=== PATIENT | female | born 1970 | race Caucasian/White ===

== ENCOUNTER → 2019-07-14 15:44 | Outpatient (CLI) | payer OTHER, SELFPAY ==
--- NOTE | 2019-07-14 14:00 | LES_PTH ---
PATIENT: CHANTELLE GARCIA LOC: [facility] U#:[id number] AGE/SX: 54/F ROOM: RE07/14/[address]: Dr. Jhony Agudelo MD : 1970 BED: DIS: SPEC #: [id number] RECD: 07/14/19 15:28 STATUS: JOSE DANNY #: [id number] TYLER: 07/14/19 14:[address]: Jhony Agudelo DEPT: SURGICAL PATHOLOGY RECD BY: Destin Novak ENTERED: 07/17/19 11:03 SP TYPE: Lesion OTHR DR: No Primary Care Phys Tissues: Skin of nose, NOS Procedures: Surgery Specimen Level IV HEADER OPERATION: Right nasal lesion biopsy PRE-OP DIAGNOSIS: Benign neoplasm of nose TISSUE SUBMITTED: Right nasal lesion MICROSCOPIC DIAGNOSIS Right nasal lesion, biopsy: Capillary hemangioma. AM:monica 07/18/19 MICROSCOPIC DESCRIPTION Slides are reviewed. GROSS DESCRIPTION Received in fixative is one container labeled with the patient's name and designated right nasal lesion. The specimen consists of a piece of lomas-white soft tissue measuring 0.4 x 0.3 x 0.3 cm. The specimen is totally submitted in one cassette. / SJ:monica 07/17/19 TC:5 CPT: 81301
== END ==
PROVIDERS: Referring Provider Otolaryngology; Visit Provider Otolaryngology
DX: D18.09 Hemangioma of other sites (principal)
CPT/HCPCS: 88305

== ENCOUNTER → 2019-08-14 12:59 | Outpatient (CLI) | payer OTHER, SELFPAY ==
--- NOTE | 2019-08-14 13:04 | ECHOD_ITS ---
Reason For Study: Chest tightness Procedure This was a 2D Doppler, Color Flow transthoracic echocardiogram. Exam performed in department. Left Ventricle Normal size and thickness. Apical false tendon noted. The estimated ejection fraction is 65 %. Normal diastology for age. No regional wall motion abnormalities noted. Right Ventricle Mildly dilated right ventricle. Normal systolic function. Atria The left atrium is mildly enlarged. Normal right atrium. Normal atrial septum. Mitral Valve The mitral valve is structurally normal. No prolapse or stenosis seen. Trivial mitral valve insufficiency. Tricuspid Valve Normal tricuspid valve. Mild (1+) tricuspid valve insufficiency. Right ventricular systolic pressure estimated to be 29 mmHg. Aortic Valve Normal aortic valve. Trisinus/trileaflet aortic valve. Pulmonic Valve Normal pulmonic valve. Trivial pulmonic valve insufficiency. Great Vessels Normal aortic root. Normal arch. Normal inferior vena cava. Inferior vena cava collapse with sniff. Pericardium/Pleural No pericardial effusion. MMode/2D Measurements & Calculations LVIDd: 5.4 cm IVSd: 0.84 cm Ao root diam: 3.4 cm LVIDs: 3.5 cm LVPWd: 0.77 cm RVDd: 3.6 cm FS: 35.8 % LAV(MOD-bp): 65.7 ml LA A4 area: 23.0 cm2 LA dimension(2D): 3.5 cm LAV(MOD-bp) Indexed: 27.9 ml/m2 LAV(MOD-sp2): 52.9 ml LAV(MOD-sp4): 71.7 ml RA A4 area: 14.0 cm2 Doppler Measurements & Calculations MV E max venancio: 78.4 cm/sec Lat Peak E' Venancio: 12.0 cm/sec Med Peak E' Venancio: 6.1 cm/sec MV A max venancio: 85.9 cm/sec E/E' lat: 6.6 E/E' med: 12.9 MV E/A: 0.91 Ao V2 max: 149.4 cm/sec LV V1 max: 120.1 cm/sec PA V2 max: 98.2 cm/sec Ao max P.9 mmHg LV V1 max P.8 mmHg TR max venancio: 233.9 cm/sec TR max P.2 mmHg Interpretation Summary The estimated ejection fraction is 65 %. Normal diastology for age. Mildly dilated right ventricle. The left atrium is mildly enlarged. Trivial mitral valve insufficiency. Mild (1+) tricuspid valve insufficiency. Right ventricular systolic pressure estimated to be 29 mmHg. There is no comparison study available. Ordering Physician: Velia Durán Referring Physician: Velia Durán Performed By: Anastasia Jacinto RDCS
--- NOTE | 2019-08-14 13:44 | EKG12_ITS ---
Test Reason : CP Blood Pressure : / mmHG Vent. Rate : 066 BPM Atrial Rate : 066 BPM P-R Int : 132 ms QRS Dur : 086 ms QT Int : 414 ms P-R-T Axes : 031 011 -02 degrees QTc Int : 434 ms Normal sinus rhythm Normal ECG Confirmed by LOUISE CHRISTIANSON, JOSE ([id number]), restaurant expeditor SADIQ CROCKETT ([id number]) on 08/16/2019 8:39:29 AM Referred By: [facility] Confirmed By:JOSE GIL MD
== END ==
DX: R07.9 Chest pain, unspecified (principal)
CPT/HCPCS: 93005; 93306

== ENCOUNTER → 2020-06-04 | Outpatient (CLI) | payer OTHER, MEDICAID, SELFPAY ==
[2019-09-20 13:18] VITALS: BMI 41.0
--- NOTE | 2020-06-04 11:44 | US_ITS ---
STUDY: SUPERFICIAL ULTRASOUND - LEFT ARM REASON FOR EXAM: Female, 49 years old. LT ARM - PALPABLE LUMPS TECHNIQUE: A superficial ultrasound was performed with real-time and static byrd-scale imaging. COMPARISON: None. FINDINGS: 4 echogenic nodules are seen at the palpable sites. The largest measures 2.9 cm x 4.9 cm x 0.8 cm. These most likely represent lipomas. US/Ext Non Vasc Limited/Soft Tiss IMPRESSION: Findings suggestive of 4 lipomas corresponding to the palpable abnormalities. Electronically Signed: Neville Davey, at 13:42 EDT , Service support ,
--- NOTE | 2020-06-04 12:05 | RAD_ITS ---
STUDY: X-RAY - LEFT SHOULDER REASON FOR EXAM: Female, 49 years old. Left shoulder pain. TECHNIQUE: 4 view(s) of the shoulder. COMPARISON: None. FINDINGS: There is no evidence of fracture or dislocation. There are no significant degenerative changes. There are no radiodense foreign bodies. RAD/Shoulder min 2 Views IMPRESSION: No fracture or dislocation. Electronically Signed: Preston Harris, at 21:17 EDT Tel , Service support ,
== END | disposition home or self-care (01) ==
DX: M79.602 Pain in left arm (principal); R22.32 Localized swelling, mass and lump, left upper limb
CPT/HCPCS: 73030; 76882

== ENCOUNTER → 2020-09-10 09:36 | Outpatient (CLI) | payer MEDICAID, SELFPAY ==
[2019-09-20 13:18] VITALS: BMI 41.0
[2020-09-10 10:47] LABS: Vitamin D,25 Hydroxy 42.5 ng/mL
[2020-09-10 10:52] LABS: ALB/GLOB Ratio 0.9 RATIO (0.9-2.4); AST(SGOT) 12 U/L (15-37); Alanine Aminotransfer ALT/SGPT 35 U/L (13-56); Albumin, Serum 3.6 g/dL (3.2-5.0); Alkaline Phosphatase 72 U/L (45-117); Anion Gap 5 (5-15); BUN 9 mg/dL (7-18); BUN/Creat Ratio 11.1 RATIO (10-20); Calcium,Total 8.7 mg/dL (8.5-10.1); Chloride 105 mmol/L (98-107); Cholesterol 151 mg/dL (200); Creatinine, Serum 0.81 mg/dL (0.55-1.02); EST Glomerular Filtration Rate 79 mL/min (>60); Est Glom Filt Rate - Afr Amer 96 mL/min (>60); Globulin 3.8 g/dL (2.2-4.2); Glucose 98 mg/dL (74-106); High Density Lipoprotein 43 mg/dL; Potassium 3.7 mmol/L (3.5-5.1); Protein, Total 7.4 g/dL (6.4-8.2); Sodium Level 139 mmol/L (136-145); Triglycerides 147 mg/dL; Very Low Density Lipoprotein 29 mg/dL (5-40)
== END ==
PROVIDERS: Family Medicine
DX: I10 Essential (primary) hypertension (principal)
CPT/HCPCS: 36415; 80053; 80061; 82306

== ENCOUNTER 2020-11-28 09:00 | Outpatient (RCR) | payer MEDICAID, SELFPAY ==
[2020-09-11 11:02] VITALS: BMI 38.9
--- NOTE | 2020-09-24 08:54 | HP.PTEVAL ---
Patient's Visit Information CHANTELLE GARCIA is a 49 year old F referred to Physical Therapy by Dr. Denis Caldera DO with a diagnosis of L shoulder LABRAL TEAR, BURSITIS. Date of Evaluation: 09/24/20 Physical Therapist: ANANTH Caballero - Visit Plan Frequency: 2x /Week Duration: 6 Weeks Plan: 2X/ week for 4-6 weeks for L shoulder PROM and then progress to AAROM and AROM, stretching, scapular and RC strengthening with HEP and modalities as needed. HEP: Russell at home flexion and scaption and mid rows yellow t-band - Subjective Pt has been having shoulder pain since late December. She has no idea how she hurt it. She went to [facility] and MRI and ultrasound, PT, and x-ray of shoulder and then they wanted her to go get shots in her shoulder. She wanted a second opinion. Dr Tay did a couple of shots in her shoulder in the office and wanted more PT. PT did not help the first time. said that if PT does not help then they will have to talk about surgery. Pt is R handed. Her pain is more of a dull ache. She feels that the shots have helped. She will wake up occ if she lays on her L shoulder wrong. - Pain L shoulder pain Pain Intensity (Out of 10): 3 Pain Intensity Range: 8 Comment: occ and does not last long. - Objective R handed: R 81# and L 27#. AROM: L shld flexion 90 degrees, L shld abd 80 degrees, L IR PSIS, L ER 15 degrees. AROM: R shld flex and abd 180 degrees, IR to T8, ER 60 degrees. PROM L shoulder: flexion to approx 160 degrees, abd to 90 degrees and painful, scaption to approx 150 degrees. Pt was able to demonstrate russell for home today with a few postural corrections. MMT: L flex 3-/4, abd 3-.5, ER 3+/5, IR 3+/5 (all painful and feel strength is limited by pain as well). - Goals Goal 1:: I HEP Goal Time Frame: 4-6 Weeks Goal 2:: Increase L shoulder AROM to 170 degrees flex and abd with less than 1/10 pain. Goal Time Frame: 4-6 Weeks Goal 3:: Increase L shoulder strength to 4/5 with no pain Goal Time Frame: 4-6 Weeks Goal 4:: Be able to sit with upright posture during treatment sessions Goal Time Frame: 4-6 Weeks - Rehabilitation Potential Rehabilitation Potential: Good - Anticipated Interventions Patient/Client Instruction: Educate patient on: Condition, Plan of Care For the Purpose of:: To decrease pain, To decrease swelling/inflammation, To increase ROM, To improve nutrient delivery to tissue, To improve muscle performance and motor function, To improve ability to perform ADL's, To increase tolerance to activity/condition/position, To improve performance and independence with ADL's, To decrease level of supervision to perform tasks, To improve ability of physical actions for home/community/work/leisure, To improve health of tissue, To decrease soft tissue restriction, To increase flexibility/ROM Therapeutic Exercise to Include: Strength training, Postural training, Flexibilty training, Active ROM, Scapular Strength/Stabilization For the Purpose of:: To decrease pain, To decrease swelling/inflammation, To increase ROM, To improve nutrient delivery to tissue, To improve muscle performance and motor function, To improve ability to perform ADL's, To increase tolerance to activity/condition/position, To decrease level of supervision to perform tasks, To improve ability of physical actions for home/community/work/leisure, To improve health of tissue, To decrease soft tissue restriction, To increase flexibility/ROM Manual Therapy Techniques to Include: Passive ROM, Soft tissue mobilization For the Purpose of:: To decrease pain, To increase ROM, To improve nutrient delivery to tissue, To improve muscle performance and motor function, To improve ability to perform ADL's, To increase tolerance to activity/condition/position, To improve performance and independence with ADL's, To improve health of tissue, To decrease soft tissue restriction, To increase flexibility/ROM IF ES: Yes Cryotherapy (ice pack, ice massage): Yes Ultrasound (thermal/non thermal): Yes For the Purpose of:: To decrease pain, To decrease swelling/inflammation, To increase ROM, To improve nutrient delivery to tissue, To improve muscle performance and motor function Thank you for the opportunity to evaluate your patient. For Medicare and Medicare HMO plans, please review the plan of care and approve it. It will need to be FAXED BACK to us at [phone] for Medicare purposes. For Medicare only, by signing this I certify the plan of care. Please let me know if there are questions or concerns regarding this plan of care. Physician Signature: Date:
--- NOTE | 2020-11-19 09:53 | HP.PTREVAL_ITS ---
Dr. Denis Caldera, DO, It has been my pleasure to treat CHANTELLE GARCIA over the last 9 visits for L shoulder LABRAL TEAR, BURSITIS. Please see the progress note below for an update on the physical therapy plan of care! Subjective: Just stiffness. Not pain. She reports that she can use her arm. She feels that PT is helping. She can get her hand over her head now and she can reach behind her back now. She feels stiff in the front of her shoulder. In the past week B hands are going numb. Both hands go to sleep at different times.... this is happening a couple of times a day. Blue and green t-band exercises for home. She has been doing those 2-3 X/ week other than when in here for PT. Objective/Function: L shoulder AROM: flexion 145 degrees, abd 95 degrees, IR to L4, and ER 16 degrees. L shld MMT: flex/abd 3+/5 (not complete ROM and increase weakness in ROM), ER/ IR 4-/5 with substitution. PROM: patient is p ainful at end range all planes. Plan Plan: 1X/ werek for 4 weeks for end range stretching and some strengthening exercises while pt does her HEP at least everyother day. Goals Goal 1:: I HEP Goal Time Frame: 4-6 Weeks Goal Progress: Goal Met Goal 2:: Increase L shoulder AROM to 170 degrees flex and abd with less than 1/10 pain. Goal Time Frame: 4-6 Weeks Goal Progress: Progressing Goal 3:: Increase L shoulder strength to 4/5 with no pain Goal Time Frame: 4-6 Weeks Goal 4:: Be able to sit with upright posture during treatment sessions Goal Time Frame: 4-6 Weeks Goal Progress: Goal Met Anticipated Interventions Patient/Client Instruction: Educate patient on: Condition, Plan of Care For the Purpose of:: To decrease pain, To decrease swelling/inflammation, To increase ROM, To improve nutrient delivery to tissue, To improve muscle performance and motor function, To improve ability to perform ADL's, To increase tolerance to activity/condition/position, To improve performance and independence with ADL's, To decrease level of supervision to perform tasks, To improve ability of physical actions for home/community/work/leisure, To improve health of tissue, To decrease soft tissue restriction, To increase flexibility/ROM Therapeutic Exercise to Include: Strength training, Postural training, Flexibilty training, Active ROM, Scapular Strength/Stabilization For the Purpose of:: To decrease pain, To decrease swelling/inflammation, To increase ROM, To improve nutrient delivery to tissue, To improve muscle performance and motor function, To improve ability to perform ADL's, To increase tolerance to activity/condition/position, To decrease level of supervision to perform tasks, To improve ability of physical actions for home/community/work/le isure, To improve health of tissue, To decrease soft tissue restriction, To increase flexibility/ROM Manual Therapy Techniques to Include: Passive ROM, Soft tissue mobilization For the Purpose of:: To decrease pain, To increase ROM, To improve nutrient delivery to tissue, To improve muscle performance and motor function, To improve ability to perform ADL's, To increase tolerance to activity/condition/position, To improve performance and independence with ADL's, To improve health of tissue, To decrease soft tissue restriction, To increase flexibility/ROM IF ES: Yes Cryotherapy (ice pack, ice massage): Yes Ultrasound (thermal/non thermal): Yes For the Purpose of:: To decrease pain, To decrease swelling/inflammation, To increase ROM, To improve nutrient delivery to tissue, To improve muscle performance and motor function Please do not hesitate to contact me at [phone] by phone or if you have questions or concerns regarding this new plan of care! Sincerely, ANANTH Caballero
--- NOTE | 2021-03-19 10:18 | HP.PT.NRP ---
CHANTELLE GARCIA was seen in my office for initial evaluation on 09/24/20. The following Plan of Care was established for this patient: Initial Frequency: 2x /Week Initial Duration: 6 Weeks Patient/Client Instruction: Educate patient on: Condition, Plan of Care For the Purpose of:: To decrease pain, To decrease swelling/inflammation, To increase ROM, To improve nutrient delivery to tissue, To improve muscle performance and motor function, To improve ability to perform ADL's, To increase tolerance to activity/condition/position, To improve performance and independence with ADL's, To decrease level of supervision to perform tasks, To improve ability of physical actions for home/community/work/leisure, To improve health of tissue, To decrease soft tissue restriction, To increase flexibility/ROM Therapeutic Exercise to Include: Strength training, Postural training, Flexibilty training, Active ROM, Scapular Strength/Stabilization For the Purpose of:: To decrease pain, To decrease swelling/inflammation, To increase ROM, To improve nutrient delivery to tissue, To improve muscle performance and motor function, To improve ability to perform ADL's, To increase tolerance to activity/condition/position, To decrease level of supervision to perform tasks, To improve ability of physical actions for home/community/work/leisure, To improve health of tissue, To decrease soft tissue restriction, To increase flexibility/ROM Manual Therapy Techniques to Include: Passive ROM, Soft tissue mobilization For the Purpose of:: To decrease pain, To increase ROM, To improve nutrient delivery to tissue, To improve muscle performance and motor function, To improve ability to perform ADL's, To increase tolerance to activity/condition/position, To improve performance and independence with ADL's, To improve health of tissue, To decrease soft tissue restriction, To increase flexibility/ROM IF ES: Yes Cryotherapy (ice pack, ice massage): Yes Ultrasound (thermal/non thermal): Yes For the Purpose of:: To decrease pain, To decrease swelling/inflammation, To increase ROM, To improve nutrient delivery to tissue, To improve muscle performance and motor function This patient was last seen in our office 12/12/20. Pertinent comments regarding their Physical therapy will appear below: [facility] PT At this point I will be discontinuing this patient from physical therapy. I would be happy to see this patient again in the future if found appropriate by the physician. Thank you! Anu Pagan, MPT
== END 2020-11-28 19:00 | disposition home or self-care (01) ==
LOC: PT 09:00
PROVIDERS: Referring Provider Orthopaedic Surgery; Visit Provider Orthopaedic Surgery
DX: S43.402D Unspecified sprain of left shoulder joint, subsequent encounter (principal); M75.52 Bursitis of left shoulder
CPT/HCPCS: 97110; 97140; 97161

== ENCOUNTER → 2021-02-07 11:22 | Outpatient (CLI) | payer MEDICAID, SELFPAY ==
[2020-09-11 11:02] VITALS: BMI 38.9
[2021-02-07 12:51] LABS: T4 Free Direct 0.87 ng/dL (0.76-1.46); Thyroid Stim Hormone (TSH) 1.86 uIU/mL (0.358-3.74)
[2021-02-07 12:57] LABS: Hemoglobin A1c 5.5 % (3.8-5.6)
[2021-02-08 09:01] LABS: Thyroid Peroxidase AB < 9 IU/mL (0-34)
== END ==
PROVIDERS: Referring Provider Nurse Practitioner Adult Health; Visit Provider Nurse Practitioner Adult Health
DX: R60.1 Generalized edema (principal)
CPT/HCPCS: 36415; 83036; 84439; 84443; 86376

== ENCOUNTER → 2021-08-11 10:34 | Outpatient (CLI) | payer MEDICAID, SELFPAY ==
[2021-08-11 11:38] LABS: Absolute Lymphocyte Count 2.53 X10^3/uL (0.83-4.51); Absolute Neutrophil Count 5.3 X10^3/uL (2.0-7.7); Basophil# 0.06 X10^3/uL; Basophil% 0.7 % (0-1); Eosinophil# 0.13 X10^3/uL; Eosinophils% 1.5 % (0-5); Hematocrit 41.6 % (37-47); Lymphocyte # 2.53 X10^3/ul (0.83-4.51); Lymphocyte % 29.4 % (19-41); Mean Corp Hgb Conc 33.7 g/dL (32-36); Mean Corpuscular Hgb 30.2 pg (27.0-32.0); Mean Corpuscular Volume 89.7 fL (81-99); Mean Platelet Vol. 10.5 fl (6.2-12.0); Monocyte# 0.51 X10^3/uL; Monocyte% 5.9 % (0-10); NRBC Flagged by Analyzer 0 % (0-5); Neutrophil # 5.34 X10^3/uL (2.7-7.7); Neutrophil % 62.2 % (47-70); Platelet Count 322 K/mm3 (150-450); RBC Distribution Width CV 13.5 % (11.6-14.6); RBC Distribution Width SD 43.8 fl (35.1-43.9); Red Blood Count 4.64 M/mm3 (4.2-5.4); White Blood Count 8.6 K/mm3 (4.4-11.0)
[2021-08-11 11:57] LABS: ALB/GLOB Ratio 0.9 RATIO (0.9-2.4); AST(SGOT) 15 U/L (15-37); Alanine Aminotransfer ALT/SGPT 36 U/L (13-56); Albumin, Serum 3.4 g/dL (3.2-5.0); Alkaline Phosphatase 69 U/L (45-117); Anion Gap 7 (5-15); BUN 9 mg/dL (7-18); BUN/Creat Ratio 11.1 RATIO (10-20); Calcium,Total 8.5 mg/dL (8.5-10.1); Chloride 102 mmol/L (98-107); Cholesterol 156 mg/dL (200); Creatinine, Serum 0.81 mg/dL (0.55-1.02); EST Glomerular Filtration Rate 79 mL/min (>60); Est Glom Filt Rate - Afr Amer 96 mL/min (>60); Globulin 3.9 g/dL (2.2-4.2); Glucose 95 mg/dL (74-106); High Density Lipoprotein 41 mg/dL; Potassium 3.4 mmol/L (3.5-5.1); Protein, Total 7.3 g/dL (6.4-8.2); Sodium Level 139 mmol/L (136-145); Triglycerides 183 mg/dL; Very Low Density Lipoprotein 37 mg/dL (5-40)
== END ==
DX: I10 Essential (primary) hypertension (principal); R00.2 Palpitations
CPT/HCPCS: 36415; 80053; 80061; 85025

== ENCOUNTER → 2021-08-20 12:34 | Outpatient (CLI) | payer MEDICAID, SELFPAY ==
--- NOTE | 2021-08-20 12:38 | ECHOD_ITS ---
Reason For Study: Palps Procedure This was a 2D Doppler, Color Flow transthoracic echocardiogram. Exam performed in department. Left Ventricle Normal LV size. Left ventricular systolic function is normal. The estimated ejection fraction is 65 %. Stage 1 diastolic dysfunction. No regional wall motion abnormalities noted. Right Ventricle Normal RV size. Normal systolic function. Atria Normal left atrium. Normal right atrium. Mitral Valve Normal mitral valve. Tricuspid Valve Normal tricuspid valve. Aortic Valve Normal aortic valve. Pulmonic Valve Normal pulmonic valve. Great Vessels Normal aortic root. Pericardium/Pleural No pericardial effusion. MMode/2D Measurements & Calculations LVIDd: 5.4 cm IVSd: 0.76 cm Ao root diam: 3.3 cm LVIDs: 3.0 cm LVPWd: 0.89 cm RVDd: 3.3 cm FS: 44.6 % LAV(MOD-bp): 40.0 ml LVAd ap4: 35.0 cm2 SV(MOD-sp4): 70.5 ml LAV(MOD-bp) Indexed: 17.0 ml/m2 LVLd ap4: 9.0 cm LAV(MOD-sp2): 28.5 ml EDV(MOD-sp4): 117.0 ml LAV(MOD-sp4): 54.4 ml EDV(sp4-el): 116.1 ml LVAs ap4: 19.5 cm2 LVLs ap4: 7.6 cm ESV(MOD-sp4): 46.4 ml ESV(sp4-el): 42.8 ml EF(MOD-sp4): 60.3 % EF(sp4-el): 63.2 % SV(sp4-el): 73.3 ml LA A4 area: 19.7 cm2 LA dimension(2D): 3.9 cm RA A4 area: 10.3 cm2 Doppler Measurements & Calculations MV E max venancio: 80.5 cm/sec Lat Peak E' Venancio: 12.7 cm/sec Med Peak E' Venancio: 7.0 cm/sec MV A max venancio: 96.3 cm/sec E/E' lat: 6.3 E/E' med: 11.5 MV E/A: 0.84 Ao V2 max: 142.5 cm/sec LV V1 max: 120.9 cm/sec PA V2 max: 101.9 cm/sec Ao max P.1 mmHg LV V1 max P.9 mmHg ECHO/Echo Complete Interpretation Summary Normal LV size. Left ventricular systolic function is normal. The estimated ejection fraction is 65 %. Stage 1 diastolic dysfunction. Ordering Physician: Bridget Canales Referring Physician: Bridget Canales Performed By: Ophelia, Anastasia, RDCS
== END ==
PROVIDERS: Referring Provider Nurse Practitioner Adult Health; Visit Provider Nurse Practitioner Adult Health
DX: R07.9 Chest pain, unspecified (principal); R00.2 Palpitations
CPT/HCPCS: 93225; 93226; 93306

== ENCOUNTER → 2021-09-22 16:39 | Outpatient (CLI) | payer MEDICAID, SELFPAY ==
[2021-09-22 17:27] LABS: Potassium 3.6 mmol/L (3.5-5.1)
== END ==
PROVIDERS: Referring Provider Nurse Practitioner Adult Health; Visit Provider Nurse Practitioner Adult Health
DX: E87.6 Hypokalemia (principal); R00.2 Palpitations
CPT/HCPCS: 36415; 84132

== ENCOUNTER → 2022-03-09 | Outpatient (CLI) | payer OTHER, MEDICAID, SELFPAY ==
[2022-03-09 12:02] LABS: BUN 12 mg/dL (7-18); BUN/Creat Ratio 13.3 RATIO (10-20); Chloride 103 mmol/L (98-107); EST Glomerular Filtration Rate 70 mL/min (>60); Est Glom Filt Rate - Afr Amer 85 mL/min (>60); Glucose 105 mg/dL (74-106); Potassium 3.5 mmol/L (3.5-5.1); Sodium Level 137 mmol/L (136-145)
[2022-03-09 12:03] LABS: Anion Gap 5 (5-15)
== END | disposition home or self-care (01) ==
LOC: LAB 10:29
PROVIDERS: Referring Provider Nurse Practitioner Adult Health; Visit Provider Nurse Practitioner Adult Health
DX: I10 Essential (primary) hypertension (principal)
CPT/HCPCS: 36415; 80048

== ENCOUNTER → 2023-08-30 | Outpatient (CLI) | payer OTHER, MEDICAID, SELFPAY ==
[2023-08-30 09:57] LABS: Absolute Lymphocyte Count 2.68 X10^3/uL (0.83-4.51); Absolute Neutrophil Count 6.1 X10^3/uL (2.0-7.7); Basophil# 0.07 X10^3/uL; Basophil% 0.7 % (0-1); Eosinophil# 0.15 X10^3/uL; Eosinophils% 1.6 % (0-5); Hematocrit 44.4 % (37-47); Hemoglobin 15.2 g/dL (12.0-15.0); Lymphocyte # 2.68 X10^3/ul (0.83-4.51); Lymphocyte % 28.2 % (19-41); Mean Corp Hgb Conc 34.2 g/dL (32-36); Mean Corpuscular Hgb 30.1 pg (27.0-32.0); Mean Corpuscular Volume 87.9 fL (81-99); Mean Platelet Vol. 10.4 fl (6.2-12.0); Monocyte% 5.3 % (0-10); NRBC Flagged by Analyzer 0 % (0-5); Neutrophil # 6.09 X10^3/uL (2.7-7.7); Neutrophil % 63.9 % (47-70); Platelet Count 315 K/mm3 (150-450); RBC Distribution Width CV 13.3 % (11.6-14.6); RBC Distribution Width SD 42.4 fl (35.1-43.9); Red Blood Count 5.05 M/mm3 (4.2-5.4); White Blood Count 9.5 K/mm3 (4.4-11.0)
[2023-08-30 10:35] LABS: Vitamin B12 543 pg/mL (211-911)
[2023-08-30 10:36] LABS: Hemoglobin A1c 6.3 % (3.8-5.6)
[2023-08-30 10:43] LABS: ALB/GLOB Ratio 0.8 RATIO (0.9-2.4); AST(SGOT) 18 U/L (15-37); Alanine Aminotransfer ALT/SGPT 48 U/L (13-56); Albumin, Serum 3.4 g/dL (3.2-5.0); Alkaline Phosphatase 77 U/L (45-117); Anion Gap 6 (5-15); BUN 11 mg/dL (7-18); BUN/Creat Ratio 12.7 RATIO (10-20); Chloride 105 mmol/L (98-107); Cholesterol 140 mg/dL (200); Creatinine, Serum 0.87 mg/dL (0.55-1.02); EST Glomerular Filtration Rate 73 mL/min (>60); Est Glom Filt Rate - Afr Amer 88 mL/min (>60); Globulin 4.2 g/dL (2.2-4.2); Glucose 119 mg/dL (74-106); High Density Lipoprotein 44 mg/dL; Potassium 3.6 mmol/L (3.5-5.1); Protein, Total 7.6 g/dL (6.4-8.2); Sodium Level 136 mmol/L (136-145); Thyroid Stim Hormone (TSH) 2.44 uIU/mL (0.358-3.74); Triglycerides 209 mg/dL; Very Low Density Lipoprotein 42 mg/dL (5-40)
[2023-08-31 14:09] LABS: Vitamin D 1,25-Dihydroxy 36.5 pg/mL (24.8-81.5)
== END | disposition home or self-care (01) ==
DX: I10 Essential (primary) hypertension (principal); R73.03 Prediabetes; E66.9 Obesity, unspecified; E78.5 Hyperlipidemia, unspecified; R53.82 Chronic fatigue, unspecified; E55.9 Vitamin D deficiency, unspecified
CPT/HCPCS: 36415; 80053; 80061; 82607; 82652; 83036; 84443; 85025

== ENCOUNTER → 2024-06-27 | Outpatient (CLI) | payer OTHER, MEDICAID, SELFPAY ==
[2024-06-27 12:51] LABS: Absolute Lymphocyte Count 2.29 X10^3/uL (0.83-4.51); Basophil# 0.08 X10^3/uL; Basophil% 0.9 % (0-1); Eosinophil# 0.16 X10^3/uL; Eosinophils% 1.8 % (0-5); Hemoglobin 14.2 g/dL (12.0-15.0); Lymphocyte # 2.29 X10^3/ul (0.83-4.51); Lymphocyte % 25.4 % (19-41); Mean Corpuscular Hgb 29.3 pg (27.0-32.0); Mean Corpuscular Volume 88.7 fL (81-99); Mean Platelet Vol. 10.8 fl (6.2-12.0); Monocyte% 5.5 % (0-10); NRBC Flagged by Analyzer 0 % (0-5); Neutrophil # 5.95 X10^3/uL (2.7-7.7); Neutrophil % 66.1 % (47-70); Platelet Count 290 K/mm3 (150-450); RBC Distribution Width CV 13.6 % (11.6-14.6); RBC Distribution Width SD 43.8 fl (35.1-43.9); Red Blood Count 4.85 M/mm3 (4.2-5.4)
[2024-06-27 14:36] LABS: ALB/GLOB Ratio 0.9 RATIO (0.9-2.4); AST(SGOT) 20 U/L (15-37); Alanine Aminotransfer ALT/SGPT 30 U/L (13-56); Albumin, Serum 3.5 g/dL (3.2-5.0); Alkaline Phosphatase 69 U/L (45-117); Anion Gap 10 (5-15); BUN 12 mg/dL (7-18); BUN/Creat Ratio 14.1 RATIO (10-20); Calcium,Total 9.2 mg/dL (8.5-10.1); Chloride 103 mmol/L (98-107); Cholesterol 152 mg/dL (200); Creatinine, Serum 0.85 mg/dL (0.55-1.02); EST Glomerular Filtration Rate 74 mL/min (>60); Est Glom Filt Rate - Afr Amer 89 mL/min (>60); Globulin 3.9 g/dL (2.2-4.2); Glucose 103 mg/dL (74-106); High Density Lipoprotein 44 mg/dL; Potassium 3.7 mmol/L (3.5-5.1); Protein, Total 7.4 g/dL (6.4-8.2); Sodium Level 139 mmol/L (136-145); Triglycerides 172 mg/dL; Very Low Density Lipoprotein 34 mg/dL (5-40)
[2024-06-27 14:44] LABS: Microalbumin,Random Urine 35.8 mg/L (NO RANGE EST.)
== END | disposition home or self-care (01) ==
LOC: VSLAB 10:07
PROVIDERS: PCP Nurse Practitioner Family; Visit Provider Nurse Practitioner Family
DX: E11.65 Type 2 diabetes mellitus with hyperglycemia (principal)
CPT/HCPCS: 36415; 80053; 80061; 82043; 84443; 85025

== ENCOUNTER → 2024-12-26 | Outpatient (CLI) | payer OTHER, MEDICAID, SELFPAY ==
[2024-12-26 13:16] LABS: Absolute Lymphocyte Count 1.97 X10^3/uL (0.83-4.51); Absolute Neutrophil Count 5.3 X10^3/uL (2.0-7.7); Basophil# 0.06 X10^3/uL; Basophil% 0.8 % (0-1); Eosinophil# 0.14 X10^3/uL; Eosinophils% 1.8 % (0-5); Hematocrit 41.1 % (37-47); Hemoglobin 13.6 g/dL (12.0-15.0); Lymphocyte # 1.97 X10^3/ul (0.83-4.51); Lymphocyte % 25.1 % (19-41); Mean Corp Hgb Conc 33.1 g/dL (32-36); Mean Corpuscular Hgb 29.8 pg (27.0-32.0); Mean Corpuscular Volume 90.1 fL (81-99); Mean Platelet Vol. 10.8 fl (6.2-12.0); Monocyte# 0.38 X10^3/uL; Monocyte% 4.8 % (0-10); NRBC Flagged by Analyzer 0 % (0-5); Neutrophil # 5.28 X10^3/uL (2.7-7.7); Neutrophil % 67.1 % (47-70); Platelet Count 318 K/mm3 (150-450); RBC Distribution Width CV 13.5 % (11.6-14.6); RBC Distribution Width SD 43.6 fl (35.1-43.9); Red Blood Count 4.56 M/mm3 (4.2-5.4); White Blood Count 7.9 K/mm3 (4.4-11.0)
[2024-12-26 19:30] LABS: Vitamin D,25 Hydroxy 26.7 ng/mL (30-100)
[2024-12-27 11:18] LABS: ALB/GLOB Ratio 1.6 RATIO (0.9-2.4); AST(SGOT) 23 U/L (<=31); Alanine Aminotransfer ALT/SGPT 25 U/L (<=34); Albumin, Serum 4.2 g/dL (3.5-5.0); Alkaline Phosphatase 71 U/L (35-104); Anion Gap 17 (5-15); BUN 9 mg/dL (4-19); BUN/Creat Ratio 11.9 RATIO (10-20); Calcium 9.2 mg/dL (7.6-11.0); Carbon Dioxide 22.5 mmol/L (22.0-29.0); Chloride 102 mmol/L (96-108); Cholesterol 165 mg/dL (<=200); Creatinine, Serum 0.8 mg/dL (0.6-1.0); EST Glomerular Filtration Rate 95 (>60); Globulin 2.6 g/dL (2.2-4.2); Glucose 104 mg/dL (70-99); High Density Lipoprotein 45 mg/dL; Potassium 4.1 mmol/L (3.3-5.1); Protein, Total 6.7 g/dL (5.9-8.4); Sodium Level 141 mmol/L (133-145); Total Bilirubin 0.37 mg/dL (0.00-1.30); Triglycerides 220 mg/dL; Very Low Density Lipoprotein 44 mg/dL (5-40)
== END | disposition home or self-care (01) ==
LOC: VSLAB 09:08
PROVIDERS: PCP Nurse Practitioner Family; Referring Provider Nurse Practitioner Family; Visit Provider Nurse Practitioner Family
DX: E11.65 Type 2 diabetes mellitus with hyperglycemia (principal); E78.5 Hyperlipidemia, unspecified; E55.9 Vitamin D deficiency, unspecified
CPT/HCPCS: 36415; 80053; 80061; 82306; 84443; 85025